=== PATIENT | male | born 1955 | race African-American/Black ===

== ENCOUNTER 2018-06-26 08:00 | Outpatient (CLI) | payer OTHER ==
--- NOTE | 2018-06-26 09:38 | RAD ---
RIGHT KNEE 4 VIEWS: HISTORY: Pain after a fall. COMPARISON: None. FINDINGS: Large joint effusion. No acute displaced fracture or malalignment is appreciated. The remainder of the soft tissues unremarkable. IMPRESSION: Large joint effusion greater than would be expected for the amount of mild degenerative changes. A t rabecular impaction fracture is suggested versus a possible acute internal derangement. CT of the ri ght knee may be beneficial. POS: [facility]
== END 2018-06-26 08:01 | disposition home or self-care (01) ==
LOC: RAD-FRANK 08:00
PROVIDERS: ATTEND Nurse Practitioner Family
DX: M25.561 Pain in right knee (principal); M25.461 Effusion, right knee